=== PATIENT | female | born 1950 | race Caucasian/White ===

== ENCOUNTER → 2017-02-28 07:58 | Outpatient (CLI) | payer MEDICARE ==
[2010-12-26 09:13] VITALS: BMI 23.4
[2017-02-28 08:24] LABS: BASOPHILS 0.3 % (0-2); EOSINOPHILS 2.2 % (0-7); HEMATOCRIT 40.6 % (36.0-48.0); HEMOGLOBIN 13.6 g/dL (12-16); IMMATURE GRANULOCYTES 0.3 % (0-5); LYMPHOCYTES 24.2 % (15-50); MCHC 33.5 g/dL (31.0-37.0); MCV 89.6 fL (80.0-100.0); MEAN PLATELET VOLUME 9.2 fL (7.4-10.4); MONOCYTES 5.4 % (2-11); NEUTROPHILS 67.6 % (40-80); PLATELET COUNT 272 10x3/uL (130-400); RBC 4.53 10x6/uL (4.00-5.40); RDW 12.7 % (11.5-14.5); WBC 7.6 10x3/uL (4.8-10.8)
[2017-02-28 08:52] LABS: ALBUMIN 3.8 g/dL (3.4-5.0); ALKALINE PHOSPHATASE 61 U/L (46-116); ALT (SGPT) 19 U/L (10-68); AMYLASE - SERUM 157 U/L (25-115); BILIRUBIN - TOTAL 0.65 mg/dL (0.2-1.3); CALC OSMOLALITY 282 mosm/kg (275-300); CALCIUM 8.8 mg/dL (8.5-10.1); CARBON DIOXIDE 27.5 mmol/L (21.0-32.0); CHLORIDE - SERUM 105 mmol/L (98-107); CREATININE - SERUM 0.6 mg/dL (0.6-1.3); GLUCOSE 101 mg/dL (74-106); LIPASE 857 U/L (73-393); POTASSIUM - SERUM 3.7 mmol/L (3.5-5.1); PROTEIN - SERUM 7.4 g/dL (6.4-8.2); SODIUM 141 mmol/L (136-145); UREA NITROGEN 18 mg/dL (7-18); eGFR NON AFRICAN AMERICAN > 90 mL/min (90-120)
== END | disposition home or self-care (01) ==
LOC: D.LAB 07:58 → D.US 09:00
PROVIDERS: Internal Medicine Gastroenterology
DX: R10.12 Left upper quadrant pain (principal); R10.13 Epigastric pain; R11.0 Nausea

== ENCOUNTER → 2017-03-05 12:33 | Outpatient (CLI) | payer MEDICARE ==
[2010-12-26 09:13] VITALS: BMI 23.4
== END | disposition home or self-care (01) ==
LOC: D.CT 12:33
DX: R10.12 Left upper quadrant pain (principal); R10.13 Epigastric pain; R11.0 Nausea

== ENCOUNTER → 2017-03-14 07:32 | Outpatient (CLI) | payer MEDICARE ==
[2010-12-26 09:13] VITALS: BMI 23.4
== END | disposition home or self-care (01) ==
LOC: D.MRI 07:32
DX: R11.0 Nausea (principal); R10.12 Left upper quadrant pain; K83.8 Other specified diseases of biliary tract; R93.429 Abnormal radiologic findings on diagnostic imaging of unspecified kidney

== ENCOUNTER → 2017-03-20 07:54 | Outpatient (CLI) | payer MEDICARE ==
[2010-12-26 09:13] VITALS: BMI 23.4
[2017-03-20 08:32] LABS: ALBUMIN 3.7 g/dL (3.4-5.0); BILIRUBIN - INDIRECT 0.23 mg/dL (0.00-1.00); BILIRUBIN - TOTAL 0.28 mg/dL (0.2-1.3); PROTEIN - SERUM 6.9 g/dL (6.4-8.2)
[2017-03-20 08:37] LABS: BILIRUBIN - DIRECT 0.05 mg/dL (0.00-0.30)
== END | disposition home or self-care (01) ==
LOC: D.LAB 03-18 13:30
PROVIDERS: Internal Medicine Gastroenterology
DX: R94.8 Abnormal results of function studies of other organs and systems (principal); R50.9 Fever, unspecified; R11.2 Nausea with vomiting, unspecified; R10.12 Left upper quadrant pain

== ENCOUNTER → 2017-04-28 18:14 | Outpatient (CLI) | payer MEDICARE ==
[2010-12-26 09:13] VITALS: BMI 23.4
[~2017-04-28 18:14] MED LIST: VALIUM5 MG PO
== END | disposition home or self-care (01) ==
LOC: D.LABREF 18:14
DX: N39.0 Urinary tract infection, site not specified (principal)

== ENCOUNTER 2017-05-01 06:22 | Day surgery (SDC) | payer MEDICARE ==
[2017-04-28 16:13] LABS: HEMATOCRIT 38.3 % (36.0-48.0); HEMOGLOBIN 12.8 g/dL (12-16); MCH 30.2 pg (26.0-34.0); MCHC 33.4 g/dL (31.0-37.0); MCV 90.3 fL (80.0-100.0); MEAN PLATELET VOLUME 9.2 fL (7.4-10.4); RBC 4.24 10x6/uL (4.00-5.40); RDW 13.2 % (11.5-14.5); WBC 5.5 10x3/uL (4.8-10.8)
[2017-05-01 07:10] VITALS: BP 174/86; BMI 21.3
--- NOTE | 2017-05-01 12:49 | OP ---
PATIENT NAME: LIDIA REYES MEDICAL RECORD: [id number] :50 [facility] DATE: SURGEON: FARRUKH GRIGGS MD DATE OF OPERATION: 05/01/2017 SURGEON: Farrukh Griggs MD ANESTHESIA: MAC by Rafal Reyna CRNA. PREOPERATIVE DIAGNOSIS: Urethral stricture, recurrent urinary tract infections. PROCEDURE: Cystoscopy, urethral stricture dilation to 34-Vietnamese. FINDINGS: Urethral stricture. Trabeculated bladder with mucosal inflammation. No bladder tumors. BLOOD LOSS: None. CLINICAL HISTORY: This is a 67-year-old female, who has initially with recurrent urinary tract infections. She has had 2 urinary tract infections in the past 2 years. She has had urethral dilation since age 18 when she was diagnosed with a urethral stricture. She last had a dilation performed 25 years ago. She feels that she is not emptying Alfaro. When we examined her in the office, she had a postvoid residual of 238 mL. She comes now to have the stricture dilated. She does not have any pelvic prolapse on physical examination. ALLERGIES: THE PATIENT IS ALLERGIC TO FLAGYL, IODINATED CONTRAST DYE, AUGMENTIN, CODEINE, ZOLOFT. She was given Levaquin IV food and nutrition teacher to the OR and she was prepped with Castile soap. DESCRIPTION OF PROCEDURE: The patient was given IV sedation. She was then prepped and draped in the lithotomy position. We used dilators starting from 22-Vietnamese and progressing all the way up to 34-Vietnamese to dilate the urethra. We then inserted a 17-Vietnamese cystoscope with 30-degree lens for cystoscopy. The ureteral orifices were difficult to see. She has diffuse inflammation of the bladder from a recent UTI. The bladder muscle wall was heavily trabeculated. The bladder was emptied through the cystoscope sheath and the scope was removed. I will see the patient in followup in 1-2 weeks to check on her postvoid residual. TRANSINT:[id number] Voice Confirmation ID: [id number] DOCUMENT ID: [id number] FARRUKH GRIGGS MD at 1249 CC: [id number] DICTATION DATE: 05/01/17 1120 ACUTE CARE SURGEON: 05/01/17 1232 REG [facility] [address] [place] [address]
--- NOTE | 2017-05-01 14:05 | NUR ---
1155 DISCHARGE INSTRUCTIONS COMPLETE. NO PRESCRIPTIONS GIVEN. SHE HAS NO QUESTIONS OR CONCERNS AT THIS TIME. ESCORTED OUT BY VOLUNTEER.
== END 2017-05-01 11:55 | disposition home or self-care (01) ==
LOC: D.OPS 06:22
PROVIDERS: Anesthesiology
DX: N35.9 Urethral stricture, unspecified (principal); N39.0 Urinary tract infection, site not specified; J45.909 Unspecified asthma, uncomplicated; I10 Essential (primary) hypertension; Z01.812 Encounter for preprocedural laboratory examination

== ENCOUNTER 2019-10-21 22:11 | Emergency (ER) | payer MEDICARE ==
[~2019-10-21] VITALS: Ht 167.6 cm; Wt 75.0 kg
[2019-10-21 22:16] VITALS: Ht 167.6 cm; Wt 75.0 kg
[2019-10-21] MEDS ORDERED: METHOCARBAMOL500 MG (22:17)
[2019-10-21] MEDS ORDERED: STEROIDS (22:17)
[2019-10-21] MEDS ORDERED: FAMOTIDINE10 MG (22:17)
[2019-10-21 22:58] LABS: BASOPHILS 0.4 % (0-2); EOSINOPHILS 0.8 % (0-7); HEMATOCRIT 41.4 % (36.0-48.0); HEMOGLOBIN 13.6 g/dL (12-16); IMMATURE GRANULOCYTES 0.2 % (0-5); LYMPHOCYTES 48.8 % (15-50); MCH 29.3 pg (26.0-34.0); MCHC 32.9 g/dL (31.0-37.0); MCV 89.2 fL (80.0-100.0); MEAN PLATELET VOLUME 9.4 fL (7.4-10.4); NEUTROPHILS 44.8 % (40-80); PLATELET COUNT 295 10x3/uL (130-400); RBC 4.64 10x6/uL (4.00-5.40); RDW 12.5 % (11.5-14.5); WBC 9.5 10x3/uL (4.8-10.8)
[2019-10-21 23:01] LABS: ANION GAP 14.8 mmol/L (8-16); CALCIUM 9.1 mg/dL (8.5-10.1); CARBON DIOXIDE 26.8 mmol/L (21.0-32.0); CREATININE - SERUM 0.9 mg/dL (0.6-1.3); POTASSIUM - SERUM 3.6 mmol/L (3.5-5.1)
[2019-10-21 23:07] LABS: ALBUMIN 4.3 g/dL (3.4-5.0); BILIRUBIN - TOTAL 0.5 mg/dL (0.2-1.3); PROTEIN - SERUM 7.2 g/dL (6.4-8.2)
[2019-10-21 23:12] LABS: AMORPHOUS SEDIMENT >1+ /lpf (NONE SEEN); BACTERIA FEW /hpf (NEGATIVE); BILIRUBIN NEGATIVE (NEGATIVE); GLUCOSE NEGATIVE (NEGATIVE); KETONE SMALL mg/dL (NEGATIVE); NITRITE NEGATIVE (NEGATIVE); RED CELLS - URINE 0-5 /hpf (0-5); UROBILINOGEN NORMAL (NORMAL)
[2019-10-21] MEDS ORDERED: CATAPRES0.1 MG PO (23:34)
[2019-10-22 00:09] VITALS: BP 151/87
== END 2019-10-22 00:09 | disposition home or self-care (01) ==
LOC: D.ER 22:11
PROVIDERS: Family Medicine
DX: I10 Essential (primary) hypertension (principal); R94.4 Abnormal results of kidney function studies; N39.0 Urinary tract infection, site not specified; J45.909 Unspecified asthma, uncomplicated

== ENCOUNTER → 2019-12-16 13:20 | Outpatient (CLI) | payer MEDICARE ==
[2019-10-21 22:16] VITALS: BMI 26.7
[~2019-12-16 13:20] MED LIST changes: +CATAPRES0.1 MG PO; +FAMOTIDINE10 MG; +METHOCARBAMOL500 MG; +STEROIDS
--- NOTE | 2019-12-19 08:56 | EC ---
PATIENT:LIDIA REYES DATE OF SERVICE: 12/16/19 SEX: F MEDICAL RECORD: [id number] DATE OF : 50 LOCATION:[facility] AGE OF PATIENT: 69 ADMISSION DATE: 12/16/19 REFERRING PHYSICIAN: INTERPRETING PHYSICIAN: TEJA AREVALO MD ECHOCARDIOGRAM REPORT ECHO CHARGES 4 ECHO COMPLETE Date: 12/16/19 CLINICAL DIAGNOSIS: HTN/HEART MURMUR ECHOCARDIOGRAPHIC MEASUREMENTS (adult normal given) AC root (d.<3.7cm) 3.2 cm LV Septum d (<1.2 cm> 1.2 cm Valve Excursion 1.6 cm LV Septum (systole) 1.6 cm Left Atria (s.<4.0cm> 4.3 cm LVPW d(<1.2cm) 1.3 cm RV (d.<2.3cm) 2.6 cm LVPW (sytole) 1.7 cm LV diastole(<5.6CM) 4.4 cm MV E-F(>70mm/sec) cm LV systole 2.7 cm LVOT Diameter 1.8 cm MV exc.(>10mm) 1.1 cm Est.ejection fraction (50-75%) % DOPPLER: LVIT cm/sec A 132.0cm/sec E 105.0 cm/sec LA cm/sec RVSP 20 mmHg LVOT 137 cm/sec AOP1/2T m/s Asc. Ao 166 cm/sec RVOT cm/sec RA cm/sec PA cm/sec AV Gradient Peak 10.99mmHg AV Mean 6.39 mmHg AV Area 2.2 cm MV Gradient Peak 7.94 mmHg MV Mean 3.30 mmHg MV Area cm COMMENTS: Driver License Agent: 2 MARLON NELSON Maintenance Manager: 3 Dr. Cloud TAPE# PACS Pericardial Effusion N DATE OF SERVICE: Adequate 2D, color flow imaging, spectral Doppler, and M-Mode. No LVH. LV internal dimensions are normal. Wall motion is normal. EF is greater than or equal to 55%. Aortic valve is tricuspid. No evidence of stenosis by Doppler interrogation. Left atrium is dilated at 4.3 cm. Mitral valve shows no prolapse. Trace MR. Right-sided chambers are grossly normal. Trace TR. ECHOCARDIOGRAM REPORT [id number] LIDIA REYES TRANSINT:[id number] Voice Confirmation ID: [id number] DOCUMENT ID: [id number] TEJA AREVALO MD at 0856 CC: [id number] DICTATION DATE: 12/16/191506 LICENSED MORTGAGE LOAN OFFICER: 12/16/194 DEP CLI 12/16/19 [address] [place] [address]
--- NOTE | 2019-12-20 08:58 | ST ---
PATIENT:LIDIA REYES MEDICAL RECORD: [id number] SEX: F LOCATION:[facility] ORDER #: ADMISSION DATE: 12/16/19 AGE OF PATIENT: 69 REFERRING PHYSICIAN: INTERPRETING PHYSICIAN: TEJA AREVALO MD DATE OF SERVICE: 12/16/2019 PROCEDURE: Treadmill stress test. Baseline ECG is normal. Exercised for 4 minutes on Mervin protocol. Maximum 126 beats per minute, less than 85% maximum predicted. No ECG change for ischemia. No symptoms of ischemia. Normal blood pressure response to exercise. Poor exercise tolerance for age. No arrhythmias were noted. TRANSINT:[id number] Voice Confirmation ID: [id number] DOCUMENT ID: [id number] TEJA AREVALO MD at 0858 CC: [id number] DICTATION DATE: 12/19/19 1014 PAPER AND PRINTS RESTORER: 12/20/19 0830 DEP CLI 12/16/19 [id number] [place] [address]
== END | disposition home or self-care (01) ==
LOC: D.HCCECHO 13:20
PROVIDERS: ATTEND Internal Medicine Interventional Cardiology
DX: I10 Essential (primary) hypertension (principal); R06.09 Other forms of dyspnea